=== PATIENT | female | born 1955 | race Two or more races ===

== ENCOUNTER → 2023-12-06 | Outpatient (CLI) | payer MEDICARE, OTHER | LOC: M WUC 11:04 | PROVIDERS: ATTEND Student in an Organized Health Care Education/Training Program | DX: S52.502A Unspecified fracture of the lower end of left radius, initial encounter for closed fracture (principal); X58.XXXA Exposure to other specified factors, initial encounter; Y92.9 Unspecified place or not applicable; Y93.9 Activity, unspecified; Y99.9 Unspecified external cause status ==